=== PATIENT | female | born 1980 | race African-American/Black ===

== ENCOUNTER 2018-06-19 08:48 | Inpatient (IN) | payer BC ==
[~2018-06-19] VITALS: Ht 170.2 cm; Wt 74.8 kg
[2018-06-19] VITALS (14 sets, daily range): BP systolic 112–134; BP diastolic 70–77
--- NOTE | 2018-06-19 02:45 | History and Physical Report ---
DATE OF ADMISSION: 06/19/2018 Surgery to be performed on 06/19/2018. MAIN COMPLAINT: Large symptomatic fibroid uterus with heavy bleeding. HISTORY OF PRESENT ILLNESS: The patient has been followed by me from March 2018, at which point she presented with heavy menses. On exam, she was found to have approximately 18-week fibroid uterus and severe anemia, down to hemoglobin of 6.6. She underwent an ultrasound that revealed multiple fibroids. The patient was examined and decision was made to proceed with myomectomy at some point later in the future. The patient received multiple IV iron transfusions until her hemoglobin and hematocrit recovered, hemoglobin to 11.7. PAST MEDICAL HISTORY: None. PAST SURGICAL HISTORY: None. ALLERGIES: None. REVIEW OF SYSTEMS: Contributory for heavy bleeding, painful periods, exercise intolerance. PHYSICAL EXAMINATION: VITAL SIGNS: Height is 67 inches, weight 162 pounds, blood pressure 100/60, respiratory rate 18. GENERAL: Young-appearing female, in no acute distress. HEAD AND NECK: Pupils are equal and reactive to light. LUNGS: Clear to auscultation bilaterally. CARDIAC: Regular rate and rhythm. ABDOMEN: Soft, nondistended, and nontender. PELVIC: Abdominopelvic mass to approximately 20 weeks size. Bimanual exam, clearly mobile 20-week fibroid uterus. RECTAL: No masses. EXTREMITIES: No clubbing, no cyanosis, or edema. ASSESSMENT: A 37-year-old with 20-week fibroid uterus, history of severe anemia, heavy menses. PLAN: Plan is for open myomectomy. The patient wants to conceive and deliver in the near future. Denia Vazquez M.D. DR: MCKAYLA JOB#: [id number] CC: SHERRIE
[~2018-06-19 08:48] MED LIST: Succinylcholine 20mg/ml 10ml vial ONE; Zemuron 50mg/5ml Inj IV ONE
[2018-06-19] MEDS ORDERED: Bupivacaine 0.5% Inj 30 ml vial INJ ONE (09:41)
[2018-06-19] MEDS ORDERED: Ropivacaine 5mg/ml Vial 30ml INJ ONE (09:41)
[2018-06-19] MEDS ORDERED: NKM (09:42)
--- NOTE | 2018-06-19 10:00 | Anethesia Preoperative Eval ---
Anesthesia Pre-op PMH/ROS General Date of Evaluation: Jun 19, 2018 Time of Evaluation: 09:56 Anesthesiologist: Christine Thomas CRNA ASA Score: ASA 2 Mallampati Score Class I : Soft palate, uvula, fauces, pillars visible Class II: Soft palate, uvula, fauces visible Class III: Soft palate, base of uvula visible Class IV: Only hard plate visible Mallampati Classification: Class II Surgeon: Taylor Diagnosis: Uterine Fibroids Surgical Procedure: Open abdominal myomectomy, hysteroscopy Anesthesia History: PONV Family History: no anesthesia problems Allergies: Coded Allergies: No Known Allergies (Unverified , 06/19/18) Medications: see eMAR Patient NPO?: Yes NPO Date: Jun 18, 2018 NPO Time: 2300 Past Medical History Hematology/Immune: Reports: anemia - Improved with Iron supplements PMH Narrative: o/w healthy 37 yo femail, hx of heavy menstrual bleeding 2/2 fibroids, severe anemia PSxH Narrative: D & C Anesthesia Pre-op Phys. Exam Physician Exam Last Vital Signs Date Time Temp Pulse Resp B/P (MAP) Pulse Ox O2 Delivery O2 Flow Rate FiO2 06/19/18 09:28 Room Air 06/19/18 09:23 97.9 49 18 122/77 (92) 100 97.9 Constitutional: NAD Neurologic: CN 2-12 intact Cardiovascular: RRR Respiratory: CTA Gastrointestinal: S/NT/ND Airway Exam Mallampati Score: Class II MO: full TMD: >3FB ROM: full Teeth: intact Dentures: no upper, no lower Anesthesia Pre-op A/P Labs Urine Test Test 06/19/18 09:00 Urine HCG, Qualitative Negative (NEGATIVE) Risk Assessment & Plan Assessment: ASA 2; ok to proceed Plan: GETA Status Change Before Surgery: No Pre-Antibiotics Drug: Christine Aaron CRNA Jun 19, 2018 10:00
[2018-06-19] MEDS ORDERED: Propofol 200mg/20ml IV ONE (10:19)
[2018-06-19] MEDS ORDERED: Lidocaine 1% MPF 10mg/ml 5ml ONE (10:19)
[2018-06-19] MEDS ORDERED: fentaNYL 100 mcg/2 mL IV ONE ×3 (10:20→12:31)
[2018-06-19] MEDS ORDERED: Midazolam 2mg/2ml Inj ONE (10:20)
[2018-06-19] MEDS ORDERED: ePHEDrine 50mg/ml Inj ONE (10:24)
[2018-06-19] MEDS ORDERED: Zemuron 50mg/5ml Inj IV ONE ×2 (10:28→11:00)
[2018-06-19] MEDS ORDERED: Sterile Water Irrig 1000ml IRRIG ONE (11:00)
[2018-06-19] MEDS ORDERED: NS Irrig 1000ml ONE (11:00)
[2018-06-19] MEDS ORDERED: LR 1000ml ONE (11:00)
[2018-06-19] MEDS ORDERED: Hydromorphone 0.5mg/0.5ml inj IVP PRN (11:15)
[2018-06-19] MEDS ORDERED: Acetaminophen (Non formulary) 100 ML IV ONE (11:30)
[2018-06-19] MEDS ORDERED: Metoclopramide 10mg/2ml Inj ONE (11:56)
[2018-06-19] MEDS ORDERED: Neostigmine 1mg/ml 10ml Inj ONE (12:06)
[2018-06-19] MEDS ORDERED: Glycopyrrolate 0.2mg/ml 1ml Vial ONE (12:06)
[2018-06-19] MEDS ORDERED: NS Irrig 1000ml IRRIG ONE (13:00)
[2018-06-19] MEDS ORDERED: Interceed TOPIC ONE (14:54)
--- NOTE | 2018-06-19 16:09 | Immediate Post-Op Evaluation ---
Immediate Post-Op Evalulation Immediate Post-Op Evalulation Procedure: Open abdominal myomectomy, hysteroscopy Date of Evaluation: Jun 19, 2018 Time of Evaluation: 15:59 IV Fluids: LR 3800 ml Blood Products: none Estimated Blood Loss: 700 ml Urinary Output: 600 ml Blood Pressure Systolic: 120 Blood Pressure Diastolic: 70 Pulse Rate: 65 Respiratory Rate: 16 O2 Sat by Pulse Oximetry: 99 Temperature (Fahrenheit): 98.2 Pain Score (1-10): 1 Nausea: No Vomiting: No Complications none Patient Status: awake, reacts, patent, extubated Hydration Status: adequate Drug: Cefazolin 1000mg Given Within 1 Hr of Incision: Yes Time Given: 11:45 Christine Thomas CRNA Jun 19, 2018 16:09
[2018-06-19] MEDS ORDERED: LORazepam 1mg tab ORAL PRN (17:00)
[2018-06-19] MEDS ORDERED: Acetaminophen 650 MG SUPP RECTAL PRN (17:00)
[2018-06-19] MEDS ORDERED: Naloxone 0.4mg/ml Inj IVP PRN (17:00)
[2018-06-19] MEDS ORDERED: PCA HYDROmorphone 1mg/ml 30 ML IV PRN (17:03)
[2018-06-19] MEDS ORDERED: DiphenhydrAMINE 50mg/ml Inj IVP PRN (17:05)
[2018-06-19 17:45] LABS: HEMATOCRIT 28.1 % (37.0-47.0); HEMOGLOBIN 9.5 G/DL (12.0-16.0); MEAN CORPUSCULAR VOLUME 80 FL (80-99); PLATELET COUNT 259 K/UL (150-450); RED BLOOD COUNT 3.49 M/UL (4.20-5.40); RED CELL DISTRIBUTION WIDTH 17.5 % (11.6-14.8); WHITE BLOOD COUNT 19.7 K/UL (4.8-10.8)
[2018-06-19] MEDS ORDERED: Milk of Magnesia 30ml Ud ORAL PRN (17:55)
[2018-06-19] MEDS ORDERED: Rate Change PCA 1 Each MISC PRN (18:00)
[2018-06-19] MEDS ORDERED: PCA Education Pamphlet MISC ONE (18:00)
[2018-06-19] MEDS: PCA shift volume MISC SCH (19:00)
[2018-06-19] MEDS ORDERED: ceFAZolin sod 1 GM in D5W 55 ML IV ONE (20:00)
--- NOTE | 2018-06-19 20:28 | Brief Operative Note ---
Immediate Post Operative Note Operative Note Pre-op Diagnosis: metromenorrhagia, symptomatic fibroid uterus, history of severe anemia Procedure: myomectomy - extensive/ hysteroscopy, dilation and curretage Post-op Diagnosis: same Surgeon: Denia Vazquez [employer]ast Concrete Ironworker: Shantel He Anesthesia: general Specimen: yes - fibroids and emc Complications: none Condition: stable Fluids: crystalloid Estimated Blood Loss: volume - 600cc Drains: none Implant(s) used?: No Denia Vazquez MD Jun 19, 2018 20:28
[2018-06-19] MEDS: D5 1/2NS w/KCl 20mEq 1,000 ML IV SCH (20:34)
[2018-06-20] VITALS: BP 120/78
[2018-06-20 04:00] VITALS: BP 120/76
[2018-06-20] MEDS: D5 1/2NS w/KCl 20mEq 1,000 ML IV SCH (04:26)
[2018-06-20 06:42] LABS: HEMATOCRIT 25.6 % (37.0-47.0); HEMOGLOBIN 8.5 G/DL (12.0-16.0); MEAN CORPUSCULAR VOLUME 79 FL (80-99); PLATELET COUNT 241 K/UL (150-450); RED BLOOD COUNT 3.26 M/UL (4.20-5.40); RED CELL DISTRIBUTION WIDTH 17.7 % (11.6-14.8); WHITE BLOOD COUNT 15.2 K/UL (4.8-10.8)
[2018-06-20] MEDS: PCA shift volume MISC SCH (07:00)
[2018-06-20 07:36] LABS: ANION GAP 6 mmol/L (5-15); BLOOD UREA NITROGEN 9 mg/dL (7-18); CALCIUM 7.7 MG/DL (8.5-10.1); CARBON DIOXIDE 28 MMOL/L (21-32); CHLORIDE 102 MMOL/L (98-107); CREATININE 0.9 MG/DL (0.55-1.30); POTASSIUM 4.3 MMOL/L (3.5-5.1); SODIUM 136 MMOL/L (136-145)
[2018-06-20 08:00] VITALS: BP 138/82
[2018-06-20] MEDS: Docusate 100mg cap ORAL SCH ×2 (08:21→17:44)
[2018-06-20] MEDS: Ketorolac 30mg Inj IV SCH ×3 (08:22→19:01)
--- NOTE | 2018-06-20 10:31 | General Surgery Progress Note ---
General Surgery-Progress Note Subjective Procedure Performed myomectomy - extensive/ hysteroscopy, dilation and curretage Symptoms: improved, tolerating diet - full liquid, difficulty voiding - didnt void yet and we will attempt to get out of bed I&O cath if unable Objective Last 24 Hour Vital Signs Date Time Temp Pulse Resp B/P (MAP) Pulse Ox O2 Delivery O2 Flow Rate FiO2 06/20/18 09:00 Room Air 06/20/18 08:00 98.0 86 19 138/82 (100) 100 98.0 06/20/18 08:00 18 06/20/18 04:00 98.1 92 16 120/76 (91) 100 98.1 06/20/18 04:00 17 06/20/18 00:00 17 06/20/18 00:00 97.6 60 16 120/78 (92) 100 97.6 06/19/18 21:00 Nasal Cannula 2.0 06/19/18 20:00 97.8 55 18 112/74 (87) 100 97.8 06/19/18 20:00 17 06/19/18 19:00 18 06/19/18 19:00 97.8 55 18 128/76 (93) 100 97.8 06/19/18 18:30 97.9 61 18 131/76 (94) 100 97.9 06/19/18 18:30 18 06/19/18 18:00 97.9 58 18 130/77 (94) 100 97.9 06/19/18 18:00 18 18 17:45 16 06/19/18 17:43 98.7 06/19/18 17:30 15 06/19/18 17:30 98.7 75 20 127/70 100 Nasal Cannula 3 98.7 06/19/18 17:15 57 15 134/72 100 Nasal Cannula 3 06/19/18 17:15 15 06/19/18 17:13 98.5 06/19/18 17:00 55 15 128/74 100 Nasal Cannula 3 06/19/18 16:45 57 16 132/74 100 Nasal Cannula 3 06/19/18 16:33 98.5 18 16:33 55 14 134/71 100 Nasal Cannula 3 06/19/18 16:20 63 14 121/71 100 Simple Mask 6 06/19/18 16:09 65 16 125/71 100 Simple Mask 6 06/19/18 16:09 208.8 65 16 99 06/19/18 16:04 61 15 124/75 100 Simple Mask 6 06/19/18 15:59 98.2 67 25 120/70 100 Simple Mask 6 98.2 06/19/18 15:50 Nasal Cannula 2.0 I&O Intake and Output 06/19/18 06/20/18 19:00 07:00 Intake Total 4325 ml 1820 ml Output Total 1500 ml 800 ml Balance 2825 ml 1020 ml Intake Oral 320 ml IV Total 4325 ml 1500 ml Output Urine Total 800 ml 800 ml Estimated Blood Loss 700 ml # Voids 1 Dressing: dry Drains: none Cardiovascular: RSR Respiratory: clear Abdomen: soft, distended, non-tender, present bowel sounds Extremities: no edema, no tenderness, no cyanosis Laboratory Tests Test 06/19/18 16:33 06/20/18 06:15 White Blood Count 19.7 K/UL (4.8-10.8) H 15.2 K/UL (4.8-10.8) H Red Blood Count 3.49 M/UL (4.20-5.40) L 3.26 M/UL (4.20-5.40) L Hemoglobin 9.5 G/DL (12.0-16.0) L 8.5 G/DL (12.0-16.0) L Hematocrit 28.1 % (37.0-47.0) L 25.6 % (37.0-47.0) L Mean Corpuscular Volume 80 FL (80-99) 79 FL (80-99) L Mean Corpuscular Hemoglobin 27.2 PG (27.0-31.0) 26.2 PG (27.0-31.0) L Mean Corpuscular Hemoglobin Concent 33.8 G/DL (32.0-36.0) 33.4 G/DL (32.0-36.0) Red Cell Distribution Width 17.5 % (11.6-14.8) H 17.7 % (11.6-14.8) H Platelet Count 259 K/UL (150-450) 241 K/UL (150-450) Mean Platelet Volume 5.9 FL (6.5-10.1) L 6.1 FL (6.5-10.1) L Neutrophils (%) (Auto) % (45.0-75.0) % (45.0-75.0) Lymphocytes (%) (Auto) % (20.0-45.0) % (20.0-45.0) Monocytes (%) (Auto) % (1.0-10.0) % (1.0-10.0) Eosinophils (%) (Auto) % (0.0-3.0) % (0.0-3.0) Basophils (%) (Auto) % (0.0-2.0) % (0.0-2.0) Differential Total Cells Counted 100 100 Neutrophils % (Manual) 86 % (45-75) H 88 % (45-75) H Lymphocytes % (Manual) 9 % (20-45) L 8 % (20-45) L Monocytes % (Manual) 5 % (1-10) 3 % (1-10) Eosinophils % (Manual) 0 % (0-3) 1 % (0-3) Basophils % (Manual) 0 % (0-2) 0 % (0-2) Band Neutrophils 0 % (0-8) 0 % (0-8) Platelet Estimate Adequate Adequate Platelet Morphology Normal Normal Hypochromasia 1+ Anisocytosis 1+ 1+ Ovalocytes 1+ Acanthocytes 1+ Sodium Level 136 MMOL/L (136-145) Potassium Level 4.3 MMOL/L (3.5-5.1) Chloride Level 102 MMOL/L (98-107) Carbon Dioxide Level 28 MMOL/L (21-32) Anion Gap 6 mmol/L (5-15) Blood Urea Nitrogen 9 mg/dL (7-18) Creatinine 0.9 MG/DL (0.55-1.30) Estimat Glomerular Filtration Rate > 60 mL/min (>60) Glucose Level 141 MG/DL (74-106) H Calcium Level 7.7 MG/DL (8.5-10.1) L Assessment Post-op Diagnosis same Denia Vazquez MD Jun 20, 2018 10:31
--- NOTE | 2018-06-20 10:45 | Operative Note - Dictated ---
DATE OF OPERATION: 06/19/2018 PREOPERATIVE DIAGNOSIS: Metromenorrhagia with symptomatic fibroid uterus. POSTOPERATIVE DIAGNOSIS: Metromenorrhagia with symptomatic fibroid uterus. PROCEDURES: 1. Myomectomy. 2. Hysteroscopy. 3. Dilation and curettage. SURGEON: Denia Vazquez M.D. LEASE OUT WORKER: Shantel He M.D. ANESTHESIOLOGIST: Christine . ANESTHESIA: General endotracheal. ESTIMATED BLOOD LOSS: 700 mL. URINE OUTPUT: 600 mL. PROCEDURE IN DETAIL: After ensuring informed consent, the patient was taken to the operating room where general anesthesia was induced. The patient was sterilely prepped and draped. A speculum was placed in the vagina. Cervix was dilated to an 8 Hegar dilator. Hysteroscope was placed inside the uterine cavity. At least 2 posterior submucosal fibroids were observed. Hysteroscopy was withdrawn and endometrial curettage was performed. Next, attention was turned to the abdomen where a low-transverse incision was made and carried down to level of the fascia with the Bovie. Fascia was nicked in the midline and the incision was extended laterally. Next, fascia was tented up with Jalen's and both bluntly and sharply dissected from the underlying rectus muscles. Rectus muscles were parted in the midline. Peritoneum was grasped with hemostats and sharply entered with scissors. Next, incision was extended superiorly and inferiorly. Next, first anterior fibroid was encountered around 6 cm in diameter. Area around the fibroid was infiltrated with dilute solution of Pitressin namely 20 units of 40 mL of Pitressin. Uterine serosa was opened up. Fibroid was grasped with Dilma's and both sharply and bluntly dissected off of the myometrium. Once that procedure was performed, the incision was closed with 0 Vicryl. Next, another anterior fibroids were removed in a likewise fashion and incision was closed. Next, fundal fibroid was removed that was approximately 5 cm in diameter and the incision was closed. Next, right lateral fundal fibroid was visualized. At this point, it is possible to exteriorize the uterus and approximately 5 or 6 more fibroids were removed. Secondary to significant blood loss, tourniquet was placed at this point in low uterine segment. Please note, the Pitressin was used throughout the case and approximately 12 units of Pitressin were used. The decision was made to close the tourniquet and low uterine segment using Cromwell drain and . After this, approximately another four fibroids were removed. All incisions were closed with 0-Vicryl. Next, Cromwell was removed. Excellent hemostasis was assured. Uterus was replaced inside the pelvic cavity. Pelvis was irrigated. Hemostasis was assured. Interceed was placed to prevent adhesion formation. Next, peritoneum was closed with 2-0 Vicryl, muscle was closed with 2-0 Vicryl, and fascia was closed with 0 Vicryl in two lengths. Subcutaneous tissue was closed with 3-0 plain and the skin was closed with 4-0 Monocryl and a Kane needle and Steri-Strips were placed over the incision. At the end of the procedure, all instrument and lap counts were correct x3. The patient was taken to the recovery area and extubated in a stable condition. Denia Vazquez M.D. DR: GUCCI JOB#: [id number] CC: SHERRIE
[2018-06-20 11:10] LABS: % IRON SATURATION 4 % (15-50); IRON 12 ug/dL (50-175); TOTAL IRON BINDING CAPACITY 312 ug/dL (250-450)
[2018-06-20 11:23] LABS: FERRITIN 17 NG/ML (8-388)
[2018-06-20 12:00] VITALS: BP 138/73
--- NOTE | 2018-06-20 14:02 | 48 Hour Post Anesthesia Eval ---
Post Anesthesia Evaluation Procedure: Open abdominal myomectomy, hysteroscopy Date of Evaluation: Jun 20, 2018 Time of Evaluation: 14:01 Blood Pressure Systolic: 128 0: 76 Pulse Rate: 82 Respiratory Rate: 20 Temperature (Fahrenheit): 97.6 O2 Sat by Pulse Oximetry: 98 Airway: patent Nausea: No Vomiting: No Pain Intensity: 3 Hydration Status: adequate Cardiopulmonary Status: stable Mental Status/LOC: patient returned to baseline Follow-up Care/Observations: n/a Post-Anesthesia Complications: none Follow-up care needed: N/A Brian Elder MD Jun 20, 2018 14:02
[2018-06-20 16:00] VITALS: BP 119/74
[2018-06-20] MEDS: Norco 5mg/325mg tab ORAL PRN (17:50)
[2018-06-20 20:00] VITALS: BP 118/81
[2018-06-20] MEDS ORDERED: Iron Sucrose 100 MG in NS 55 ML IV SCH (21:00)
[2018-06-20] MEDS: HYDROcodone/Acetamin 10/325 tab ORAL PRN (21:56)
[2018-06-21] VITALS: BP 110/67
[2018-06-21] MEDS: Ketorolac 30mg Inj IV SCH ×3 (00:59→13:06)
[2018-06-21 04:00] VITALS: BP 122/71
[2018-06-21 08:00] VITALS: BP 113/71
[2018-06-21] MEDS: Docusate 100mg cap ORAL SCH (08:28)
[2018-06-21] MEDS: Norco 5mg/325mg tab ORAL PRN (08:29)
[2018-06-21] MEDS ORDERED: NORCO 10-325 T1 EACH ORAL (11:00)
[2018-06-21] MEDS ORDERED: IBUPROFEN600 MG ORAL (11:01)
[2018-06-21 12:00] VITALS: BP 116/70
[2018-06-21] MEDS: HYDROcodone/Acetamin 10/325 tab ORAL PRN (12:05)
[2018-06-21] MEDS ORDERED: DiphenhydrAMINE 50mg/ml Inj IVP PRN (17:05)
--- NOTE | 2018-06-22 11:50 | Discharge Summary ---
Discharge Summary Hospital Course Date of Admission Jun 19, 2018 at 08:48 Date of Discharge Jun 21, 2018 at 14:30 Admitting Diagnosis uterine fibroids Reason for Hospitalization: elective surgery HPI Ramírez Medina is a 37 year old female who initially presented to [facility] office with complaints of heavy menses. On examination was found approximately 18-week fibroid uterus and laboratory workup revealed severe anemia with hemoglobin down to 6.6. She underwent an ultrasound that revealed multiple fibroids. The patient was examined and decision was made to proceed with myomectomy at some point later in the future. The patient received multiple IV iron transfusions until her hemoglobin and hematocrit recovered with hemoglobin to 11.7. Patient consented to surgery and admitted for surgical procedure. Procedures s/p by dr Vazquez 1. Myomectomy. 2. Hysteroscopy. 3. Dilation and curettage. Hospital Course s/p surgery course of recovery uneventful initially IVF s/p perioperative abx initially Bynum x 24 hrs, then dc NPO status until bowel function returned then slowly started on liquid diet and advanced as tolerated able to tolerate diet antiemetic were on board as needed IVF discontinued pain management addressed, and pain controlled dressing clean, dry, and intact ambulated voided bowel regimen instituted IV Venofer while in the hospital with close monitoring of HH discharge instruction provided stable for discharge home outpatient follow-up with [facility] as advised FINAL DIAGNOSES uterine fibroids s/p open abdominal myomectomy, hysteroscopy, dilation and curettage severe anemia heavy menses Discharge Medications Continued Medications: Hydrocodone Bit/Acetaminophen 10-325* (Austwell 10-325*) 1 Each Tablet 1 TAB ORAL Q4H PRN for For Pain, TAB 0 Refills (This prescription has been renewed) PRN PAIN Ibuprofen* (Motrin*) 600 Mg Tablet 600 MG ORAL Q6H PRN for For Pain, #30 TAB (This prescription has been renewed) Discharge Condition Upon Discharge: stable Discharge Disposition Patient was discharged to Home () Discharge Instructions Discharge Instructions Special Instructions I have been assigned to complete a D/C Summary on this account. I was not involved in the patient management Lisa Falk NP Jun 22, 2018 11:50
== END 2018-06-21 14:30 | disposition home or self-care (01) | DRG 743 ==
LOC: SDSOVERFLO 08:48 → 3E 17:50
PROC: 0UDB7ZZ Extraction of Endometrium, Via Natural or Artificial Opening (ICD-10-PCS; principal; 2018-06-19 11:00)
PROC: 0UB90ZZ Excision of Uterus, Open Approach (ICD-10-PCS; principal; 2018-06-19 11:00)
PROC: 0UJD8ZZ Inspection of Uterus and Cervix, Via Natural or Artificial Opening Endoscopic (ICD-10-PCS; principal; 2018-06-19 11:00)
DX: D25.9 Leiomyoma of uterus, unspecified (principal); N92.1 Excessive and frequent menstruation with irregular cycle
CPT/HCPCS: 36415; 80048; 81025; 82728; 83540; 83550; 85007; 85025; 86850; 86900; 86901; 86920; 87081; 94003; 94150; J2250; J2405; J2710; J2765